=== PATIENT | male | born 2000 | race Caucasian/White ===

== ENCOUNTER 2024-05-16 11:28 | Outpatient (AMB) | payer OTHER, SELFPAY ==
--- NOTE | 2024-05-16 11:29 | A.OFFPC_ITS ---
Vital Signs 05/16/24 11:35 Height 5 ft 9 in Weight 190 lb 2 oz BMI 28.1 BP 116/74 Blood Pressure Location Lt brachial Position Sitting Pulse 79 Pulse Source Pulse Oximeter Pulse Oximetry (%) 98 Oxygen Delivery Method Room Air Intake Visit Reasons: CERTIFIED NUCLEAR MEDICINE TECHNOLOGIST/Armand lucas Allergies No Known Allergies Allergy (Verified 05/16/24 11:34) Medication List - Last Reconciled 05/16/24 by Tani Acuna MD methylphenidate HCl (Ritalin) 20 mg PO DAILY Tobacco use date assessed: 05/16/24 Dental Screening Dental Screen Date: 05/16/24 Did you have a dental visit in the last 12 months?: Yes Did you have a dental problem in the last 6 months where you did not have access to dental care?: No Was dental information given to patient?: Patient has dentist HPI CERTIFIED NUCLEAR MEDICINE TECHNOLOGIST/Armand lucas HPI Details New patient visit The patient is presenting for a routine physical examination after not seeing a doctor for over a year. - The patient is a 23-year-old male on a utism spectrum - ADHD history, previously managed with Ritalin prescribed by a tube blower, needs new psychiatric provider for continued prescription; running low on current supply. - Bilateral hand numbness, particularly upon waking, potential carpal tunnel syndrome suggested, with recommendation for wrist splint during sleep alleviating symptoms. Health Maintenance - Flu vaccine recommended and agreed upo n, with plans to administer during the visit. - Evaluation of immunization status for chickenpox and MMR; records to be reviewed. - Discussion to check titers if necessar y for ensuring immunity against chickenpox. - Yeast rash (potential Tinea Versicolor ) noted, management with topical antifungals discussed but advised to monitor without immediate concern unless symptoms worsen. - Wellness labs to be drawn during the v isit; patient on a non-fasting state since the previous evening. Medications - Ritalin for Attention Deficit Hyperact ivity Disorder (ADHD), prescribed by tube blower, usage continued at patient?s current regimen pending new psychiatric assessment. Social History - Full-time college student, senior stat [employer], primarily studies; stresses associated with academia managed alongside ADHD. 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 - No current substance use discussed or reported. Problem List - Attention Deficit Hyperactivity Disord er (ADHD) - Autism Spectrum Disorder (ASD) - Tingling and numbness in bilateral liao ds (possible Carpal Tunnel Syndrome) Patient Instructions - Get lab work done today since last lamar l was the previous night. - Await Suni, the behavioral health coor dinator, for guidance about establishing care with a new psychiatric provider for medication refill. - Monitor hand numbness and consider wri st splints during sleep. - Receive flu shot today during the visi t. - Follow up to review immunization recor ds and possibly check immunity titers if records are insufficient. Review of Systems - Neurological: Reports tingling and num bness in both hands, primarily in the morning. - Skin: Reports occasional yeast rash, m ore prevalent in warmer seasons. - General: No fever no chills - Neurological: No headaches no dizzin ess - Ear nose throat: No sore throat no hearing difficulty no ear pain - Cardiovascular: No syncope, no chest pain, no palpitations - Gastrointestinal: No nausea vomiting or diarrhea - Endocrine: No polyuria polydipsia no heat intolerance - Genitourinary: No dysuria Physical Exam General: Cooperative, healthy appearing, comfortable, no acute distress Orientation: Patient oriented x3 Limitations: Autism spectrum Head: Normal to inspection Ears: Within normal limit visually Nose: Normal external nose present Face and sinus: Normal facial exam Eyes: Appearance normal, extraocular movement intact pupils reactive Neck: Normal visual inspection and supple Respiratory: Normal respiratory effort and able to speak in complete sentences. Clear to auscultation, no stridor Cardiovascular: S1 and S2 GI: Normal to inspection. Soft to palpation and nontender Skin: Turgor normal, no acute findings. Reports of yeast rash and little spotties, more so in the summer, identified as Tenia versicola. Neuro: Patient oriented x3, motor sensory intact, balance intact, tandem pass. Reports of hands going numb, both hands, especially in the morning. Extremities: Normal to inspection [facility] Social History Housing: House Patient Tobacco Use Status: Never used Tobacco e-Cigarette/Vaping Use: Never Used service: No Current occupational status: employed Cognitive needs: No Hearing needs: No Vision needs: Yes Questionnaire PHQ-9 Over the last 2 weeks, how often have you been bothered by any of the following problems? 1. Little interest or pleasure in doing things: not at all 2. Feeling down, depressed, or hopeless: not at all 3. Trouble falling or staying asleep, or sleeping too much: not at all 4. Feeling tired or having little energy: not at all 5. Poor appetite or overeating: not at all 6. Feeling bad about yourself - or that you are a failure or have let yourself or your family down: not at all 7. Trouble concentrating on things, such as reading the newspaper or watching television: not at all 8. Moving or speaking so slowly that other people could have noticed. Or the opposite - being so fidgety or restless that you have been moving around a lot more than usual: not at all 9. Thoughts that you would be better off or of hurting yourself in some way: not at all Total score: 0 Depression Screening Interpretation: Negative Depression Screening Done: Yes 45427 - PHQ-9 Billing: Yes Source: Developed by Drs. Adal Yeh, Martha Lai, Jacob Persaud and colleagues, with an educational donna from [employer]. Thrive Questionnaire Date Thrive assessed: 05/16/24 I am a: Patient What is your living situation today?: I have a steady place to live Within the past 12 months, did the food you bought not last and you didn't have the money to get more?: Never true Within the past 12 months, did you worry whether your food would run out before you got money to buy more?: Never true Do you have trouble paying for medicines?: No Do you have trouble getting transportation to medical appointments?: No Do you have trouble paying your heating and electricity bill?: No Do you have trouble taking care of your child, family member or friend?: No Do you have trouble with day-to-day activities such as bathing, preparing meals, shopping, managing finances, etc.?: No Are you currently unemployed and looking for a job?: No Are you interested in more education?: Yes Please select the resources that you would like help with: None Currently or been in a relationship where the following occur: No concerns reported THRIVE Score: 0 AUDIT C Alcohol Use Questionnaire (AUDIT-C) 1. How often do you have a drink containing alcohol?: Never 3. How often do you have six or more drinks on one occasion?: Never Total Score: 0 Score Reviewed/Action Taken: Yes MARIEL-7 AMB Questionnaire MARIEL-7 Date MARIEL - 7 assessed: 05/16/24 Feeling nervous, anxious, or on edge: 0 = Not at all Not being able to stop or control worryin = Not at all Worrying too much about different things: 0 = Not at all Trouble relaxin = Not at all Being so restless that it is hard to sit still: 0 = Not at all Becoming easily annoyed or irritable: 0 = Not at all Feeling afraid as if something awful might happen: 0 = Not at all Total MARIEL-7 score (0-4 normal; 5-9 mild; 10-14 moderate; 15-21 severe): 0 Source: Developed by Drs. Adal Yeh, Martha Lai, Jacob Persaud and colleagues, with an educational donna from [employer]. MARIEL-7 Assessment Billing MARIEL-7 Assessment Tool: MARIEL-7 Assessment 48040 Physical exam (Primary Care) Vital Signs: Last Vital Signs Pulse 79 05/16/24 11:35 BP 116/74 05/16/24 11:35 Pulse Ox 98 05/16/24 11:35 Oxygen Delivery Method Room Air 05/16/24 11:35 BMI result Body Mass Index 28.1 Tobacco/Smoking Status: Tobacco use Status Tobacco use date assessed 05/16/24 05/16/24 11:38 Patient Tobacco Use Status Never used Tobacco 05/16/24 11:38 e-Cigarette/Vaping Use Never Used 05/16/24 11:38 PHQ-9: PHQ-9 Score PHQ-9: Total score 0 05/16/24 12:11 Depression Screening Interpretation: Negative Thrive Assessment: Date of Thrive Assessment Date Thrive assessed 05/16/24 05/16/24 11:39 Currently or been in a relationship where the following occur: No concerns reported Office Procedures Flu Questionnaire Does the patient have a severe egg allergy?: No Does the patient have severe life threatening allergies?: No Does the patient have a fever or illness today?: No Has the patient ever had Guillain-Schleswig Syndrome?: No Has the patient ever had any past reaction to a flu shot?: No Immunizations Fluarix Triv [id number] (PF) 45 mcg (15 mcg x 3)/0.5 mL IM syringe Performing Provider: Tani Acuna MD [place] [facility] Administered by: Mukesh Ramírez CMA on 05/16/24 12:11 Dose Route Admin Location Dispensed Lot Number Expiration Date NDC Rip Saw Operator 0.5 mL IM Left Deltoid 0.5 mL [id number] 10/20/24 [id number] VIS Given Date VIS Provided VIS Publication Date 05/16/24 Single Vaccine 20 Eligibility Eligibility Date Funding Source Not [facility] Eligible 05/16/24 Private Coding Level of Care Code New Pt Level 4 (09317) New Pt Prev Care 18-39yr(59626 Diagnoses Encounter for general adult medical examination with abnormal findings Z00.01 Attention deficit hyperactivity disorder (ADHD), predominantly inattentive type F90.0 Attention deficit type: attention deficit hyperactivity disorder (ADHD) Attention deficit-hyperactivity disorder type: predominantly inattentive Autism F84.0 Carpal tunnel syndrome, bilateral G56.03 Additional Codes MARIEL-7 Assessment Billing - MARIEL-7 Assessment Tool: MARIEL-7 Assessment 46036 ([id number]) PHQ-9 - 51338 - PHQ-9 Billing: Yes ([id number]) Assessment & Plan Assessment & Plan (1) Encounter for general adult medical examination with abnormal findings: Code(s): Z00.01 - Encounter for general adult medical examination with abnormal findings Category: Medical (2) ADD (attention deficit disorder): Code(s): F98.8 - Other specified behavioral and emotional disorders with onset usually occurring in childhood and adolescence Category: Medical Qualifiers: Attention deficit type: attention deficit hyperactivity disorder (ADHD) Attention deficit-hyperactivity disorder type: predominantly inattentive Qualified Code(s): F90.0 - Attention-deficit hyperactivity disorder, predominantly inattentive type (3) Autism: Code(s): F84.0 - Autistic disorder Category: Medical (4) Carpal tunnel syndrome, bilateral: Code(s): G56.03 - Carpal tunnel syndrome, bilateral upper limbs Category: Medical Plan New patient visit The patient is presenting for a routine physical examination after not seeing a doctor for over a year. - The patient is a 23-year-old male on autism spectrum - ADHD history, previously managed with Ritalin prescribed by a tube blower, needs new psychiatric provider for continued prescription; running low on current supply. - Bilateral hand numbness, particularly upon waking, potential carpal tunnel syndrome suggested, with recommendation for wrist splint during sleep alleviat ing symptoms. Health Maintenance - Flu vaccine recommended and agreed upon, with plans to administer during the visit. - Evaluation of immunization status for chickenpox and MMR; records to be revie wed. - Discussion to check titers if necessary for ensuring immunity against chickenpox. - Yeast rash (potential Tinea Versicolor) noted, management with topical antifungals discussed but advised to monitor without immediate concern unless symptoms worsen. - Wellness labs to be drawn during the visit; patient on a non-fasting state since the previous evening. Medications - Ritalin for Attention Deficit Hyperactivity Disorder (ADHD), prescribed by tube blower, usage continued at patient?s current regimen pending new psychiatric assessment. Social History - Full-time college student, senior status, primarily studies; stresses associated with academia managed alongside ADHD. 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 - No current substance use discussed or reported. Problem List - Attention Deficit Hyperactivity Disorder (ADHD) - Autism Spectrum Disorder (ASD) - Tingling and numbness in bilateral hands (possible Carpal Tunnel Syndrome) Patient Instructions - Get lab work done today since last meal was the previous night. - Await Suni, the behavioral health coordinator, for guidance about establishing care with a new psychiatric provider for medication refill. - Monitor hand numbness and consider wrist splints during sleep. - Receive flu shot today during the visit. - Follow up to review immunization records and possibly check immunity titers if records are insufficient. Orders: Orders Complete Blood Count Auto Diff Today E66.09 - Other obesity due to excess calories, F84.0 - Autistic disorder, F98.8 - Other specified behavioral and emotional disorders with onset usually occurring in childhood and adolescence, G56.03 - Carpal tunnel syndrome, bilateral upper limbs, Z00.01 - Encounter for general adult medical examination with abnormal findings TSH reflex Free T4 Today E66.09 - Other obesity due to excess calories, F84.0 - Autistic disorder, F98.8 - Other specified behavioral and emotional disorders with onset usually occurring in childhood and adolescence, G56.03 - Carpal tunnel syndrome, bilateral upper limbs, Z00.01 - Encounter for general adult medical examination with abnormal findings Influenza [id number] Immunization Today Z23 - Encounter for immunization Comprehensive [place]. Panel Fast Today E66.09 - Other obesity due to excess calories, F84.0 - Autistic disorder, F98.8 - Other specified behavioral and emotional disorders with onset usually occurring in childhood and adolescence, G56.03 - Carpal tunnel syndrome, bilateral upper limbs, Z00.01 - Encounter for general adult medical examination with abnormal findings Lipid Panel Today E66.09 - Other obesity due to excess calories, F84.0 - Autistic disorder, F98.8 - Other specified behavioral and emotional disorders with onset usually occurring in childhood and adolescence, G56.03 - Carpal tunnel syndrome, bilateral upper limbs, Z00.01 - Encounter for general adult medical examination with abnormal findings Vitamin D 25-OH (D2 and D3) Today E66.09 - Other obesity due to excess calories, F84.0 - Autistic disorder, F98.8 - Other specified behavioral and emotional disorders with onset usually occurring in childhood and adolescence, G56.03 - Carpal tunnel syndrome, bilateral upper limbs, Z00.01 - Encounter for general adult medical examination with abnormal findings
[2024-05-16 11:35] VITALS: BP 116/74; PULSE 79; O2SAT 98; BMI 28.1
--- OUTSIDE RECORDS SUMMARY | 2024-05-16 13:44 | XMS_ITS | Clinical Summary ---
Author Organization [facility] Address [address] [place] [id number] Phone Care Team Providers Care Depalletizer Operator Name Role Phone Unavailable Primary Care Provider Unavailabl e Allergies No known active allergies Medications Melatonin 5 MG tablet dispersibleIndica tions:Attention deficit hyperactivity disorder, predominantly inattentive type Take 1 tablet by mouth nightly. 90 tablet 3 9 Active Additional Information Patient not taking.Reported on 03/10/2022 fluticasone (VERAMYST) 27.5 MCG/SPRAY nasal sprayIndications: Allergic state, subsequent encounter 1-2 spray(s) by intranasal route every day in each nostril. 10 g 11 9 Active Additional Information Patient not taking.Reported on 03/26/2023 methylphenidate (Ritalin) 10 MG tabletIndications :Attention deficit hyperactivity disorder, predominantly inattentive type Take 1 tablet (10 mg total) by mouth every afternoon. 30 tablet 4 Active methylphenidate LA (Ritalin LA) 20 MG 24 hr capsuleIndication s:Attention deficit hyperactivity disorder, predominantly inattentive type Take 1 capsule (20 mg total) by mouth every morning. 30 capsule 4 Active Active Problems Problem Noted Date Diagnosed Date Autism spectrum disorder 07/05/2016 Overview (03/17/2019): dx by [facility]2 in MAR 2016 [facility] piedad. had IEP. Now has 504 plan 2018-. Doing GREAT in school I excuse him from gym class due to difficulties with tying shoes and getting changed amongst peers. Assessment & Plan (03/26/2023 10:47 AM EST): High functioning college student @ [employer] Assessment & Plan (04/08/2020 1:54 PM EST): Got a college scholarship! 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 Overview (11/17/2022): Ritalin LA: inc to 20mg OCT21 Methylphenidate 10mg short- prn afternoon dose if working evening takes prn melatonin; once a year med check Going to [employer] Assessment & Plan (03/26/2023 10:47 AM EST): Stable on methylphenidate LA 20mg w/ prn short acting methylphenidate 10mg in afternoon In [facility] @ [employer] [facility] [facility] Today is last PE w/ me- gave him adult PCP list so he can work on transferring to adult care in 2023 I will RF ADD meds for the next 12mo Assessment & Plan (11/17/2022 9:42 AM EDT): Spoke to mom- occasionally he works an evening shift and his morning dose methylphenidate MA 20mg does not last into the evening. Wants to try a prn short acting dose 10mg methylphenidate. This is reasonable. Assessment & Plan (10/20/2022 10:18 AM EDT): Stable on methylphenidate LA 20mg PE due in NOV- pt prefers we call mom to set up PE appt Assessment & Plan (03/10/2022 5:15 PM EST): College student/high functioning ASD Annual med check OK as he is very stable on methylphenidate LA 20mg Assessment & Plan (04/01/2021 3:19 PM EST): Doing great on inc dose methylphenidate LA to 20mg hmk time going much better Will RF med until his next PE due in Advised to get COVID vacc booster! 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 Inc methylphenidate LA to 20mg Med check VV in 6w Assessment & Plan (04/08/2020 1:55 PM EST): 4.1 GPA Has been taking methylphenidate LA but not consistently He is doing well in school- less distractions w/ remote learning Will go to [facility] or [employer] [facility]- [facility] [employer] scholarship funding Plan for Med check in late when he is a few weeks into college Assessment & Plan (07/30/2019 11:35 AM EDT): Not feeling like he needs the methylphenidate LA while he is home doing schoolwork secondary to COVID19 pandemic- no distractions like he has @ school But there are different distractions @ home so may want to re-think taking his med Also encouraged to get onto some kind of schedule for schoolwork and get into a better sleep schedule- discussed ways to do this Plan on med check in FEB when here for PE Assessment & Plan (03/18/2019 4:03 PM EST): He is doing great; honor roll; wants to study video game design in college On methylphenidate LA 10mg for a long time Med check in Assessment & Plan (07/15/2018 11:21 AM EDT): He is doing so great in school- cont ritalin LA 10mg. V-bilts are great today. Going to hold off on med for summertime. Med check in JAN with full PE. Assessment & Plan (02/19/2018 9:54 AM EDT): Doing well this year again- has IEP; med check in 4mo. On ritalin LA low dose 10mg Assessment & Plan (08/01/2017 3:40 PM EDT): He is doing so well that I will see him q6mo now; cont. Ritalin LA 10mg; I can do 3 mo RFs at a time until OCT Come back in OCT for full PE Assessment & Plan (01/24/2017 3:45 PM EDT): He is really doing great in school this year! Learning disability 05/01/2012 Overview (02/19/2018): IEP in place Allergic rhinitis 08/30/2011 Overview (02/18/2021): Saw government documents librarian who rec veramyst; did not do well with allergy shots Seasonal allergies Assessment & Plan (02/18/2021 5:19 PM EDT): Uses nasal spray veramyst prn Per mom he is difficult to get to comply Will see if he needs RF in - he is 20yo now and can do better w/ remembering on his own! Assessment & Plan (01/24/2017 3:43 PM EDT): veramyst effective Amblyopia 09/13/2007 Overview (02/18/2021): Better w/ glasses! Assessment & Plan (02/18/2018 10:46 AM EDT): Mom will take him for eye appt. 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 Overview (03/18/2019): Mild; 8-10 degreees R thoracic; stable and he is nearly done growing Anxiety 03/04/2015 04/07/2020 Overview (02/19/2018): Much better since he started [facility] Constipation 12/01/2013 02/18/2021 Overview (02/19/2018): Prn miralax effective Assessment & Plan (01/24/2017 3:44 PM EDT): miralax effective when he agrees to take it Immunizations Name Administration Dates Next Due DTaP 5 10/04/2006, 4,04/08/2003,01/28,2002 H1N1 07/06/2009,03/23/2009 HPV, Quadrivalent 06/16/2014,02/11/2014,12/02/19 14 Hep A, ped/adol 06/16/2014,12/01/2013 Hep B, ped/adol 07/02/2003,04/08/2003,2002 Hib (HbOC) 01/27/2004 Hib (PRP-T) 04/08/2003,01/28/2003,2002 IPV 10/04/2006, 4,01/28/2003,11/26 Influenza, injectable, quadrivalent 06/16/2014 Influenza, injectable, quadr ivalent, preservative free 03/26/2023,03/10/2022,02/18/2021,04/07,03/17/2019,02/18/2018,01/24/2017 ,01/17/2016 Influenza, injectable, trivalent 03/23/2009,03/23 Influenza, intranasal, quadrivalent 03/04/2015,1 05/03/2012 Influenza, intranasal, trivalent 04/19/2011 MMR 10/01/2003 MMRV 10/04/2006 Meningococcal B Trumenba 09/19/2022,03/10/2022 Meningococcal Conj (Menactra) MCV4P 03/17/2019,0 12/01/2013 Pneumococcal Conjugate 01/27/2004,2002,01/28/2003,11/26 Tdap 12/01/2013 Varicella 10/01/2003 Family History Medical History Relation Name Comments Asthma Father Franklyn Arambula Depression Maternal Grandfather Heart disease Maternal Grandfather Hypertension Maternal Grandmother Ulcerative colitis Maternal Grandmother Anxiety disorder Mother July Procon Asthma Mother July Procon Breast cancer Mother July Procon Hyperlipidemia Mother July Procon Migraines Mother July Procon Hyperlipidemia Mother's Sister No Known Problems Paternal Grandfather Anxiety disorder Paternal Grandmother Breast cancer Paternal Grandmother Diabetes Paternal Grandmother Hypertension Paternal Grandmother Lupus Paternal Grandmother Transient ischemic attack Paternal Grandmother Ulcerative colitis Sister 1 Danay Procon Anxiety disorder Sister 2 Kat Procon No Known Problems Sister 3 Heaven Procon Relation Name Status Comments Father Franklyn Procon Alive Father: Asthma Maternal Grandfather Alive Maternal Grandmother Alive Materna l grandmother: Hypertension, Diabetes mellitus, colitis, Lupus erythematosus Mother July Procon Alive Mother: Asthma, hyperlipidemia Mother's Sister Other Family history of Sudden /AK under age 55, Family history of CVA (Stroke), No family history of Dental caries, Family history of Thrombophilia Paternal Grandfather Alive Paternal Grandmother Alive Sister 1 Danay Procon Alive Sister 2 Kat Procon Alive Sister 3 Heaven Procon Alive Social History Tobacco Use Types Packs/Day Years Used Date Smoking Tobacco: Never Smokeless Tobacco: Never Comments:Never smoker Alcohol Use Standard Drinks/Week Comments No 0 (1 standard drink = 0.6 oz pur e alcohol) Hunger/Food Answer Date Recorded In the last 12 months, did y ou or your family ever eat less than you felt you should because there wasn't enough money for food? No 03/26/2023 Stable Housing Answer Date Recorded Are you worried that in the next 2 months you may not have stable housing? No 03/26/2023 Transportation Concerns Answer Date Rec orded In the last 12 months, have you or your family ever had to go without healthcare because you didn't have a way to get there? No 03/26/2023 Hazards in Home Answer Date Recorded Think about the place you li ve. Do you have problems with any of the following? Pests (mice or roaches), mold, no/not working smoke detectors, water leaks, no window guards. No 2022 Financing Utilities Answer Date Recorde d In the last 12 months, has t he electric, gas, oil, or water company threatened to shut off your services in your home? No 03/26/2023 Safety at Home Answer Date Recorded Are you or your family worried about feeling saf e in your home? No 03/26/2023 Outside Support Answer Date Recorded Do you feel that you need mo re support from other people or programs to help you care for yourself or your family? No 03/26/2023 Understanding Health Concerns Answer Da te Recorded Do you need help understandi ng your or your child's healthcare needs (diagnosis, medications, plan, etc.)? No 03/26/2023 Financing Health Concerns Answer Date R ecorded In the last 12 months, was t here a time when your child needed to see a doctor or get medications or supplies but could not because of cost? No 03/26/2023 Missing School or Work Answer Date Mann rded Did you or your child miss s chool or work because of a health problem that could have been avoided? No 03/26/2023 Sex and Gender Information Value Date Recorded Sex Assigned at Not on file Legal Sex Male 5:21 PM EDT Gender Identity Not on file Sexual Orientation Straight 03/26/2023 10 :44 AM EST Last Filed Vital Signs Vital Sign Reading Time Taken Comments Blood Pressure 111/70 03/26/2023 8:12 AM EST Pulse 70 03/26/2023 8:12 AM EST Temperature 35.6 ??C (96 ??F) 03/26/2023 8:12 AM EST Respiratory Rate - - Oxygen Saturation - - Inhaled Oxygen Concentration - - Weight 71.9 kg (158 lb 9.6 oz) 03/26/2023 8:12 A M EST Height 175.3 cm (5' 9 ) 03/26/2023 8:12 AM EST Body Mass Index 23.42 03/26/2023 8:12 AM EST Plan of Treatment Health Maintenance Due Date Last Done Comments Influenza Vaccines (#1) 2023 03/26/20, 03/10/2022, 02/18/2021, Additional history exists DTaP,Tdap,and Td Vaccines (7 - Td or Tdap) 12/02/2023 12/01/2013, 10/04/2006, 03/31/2004, Additional history exists COVID-19 Vaccine (3 - 2023-2 5 season) 2023 09/13/2020, 08/23/2020 Hepatitis B Vaccines Completed 07/02/2003, 04/08/2003, 2002 HIB Vaccines Completed 01/27/2004, 03/23, 01/28/2003, Additional history exists Pneumococcal Vaccine Completed 01/27/2004, 04/08/2003, 01/28/2003, Additional history exists IPV Vaccines Completed 10/04/2006, 06/21, 01/28/2003, Additional history exists MMR Vaccines Completed 10/04/2006, 10/01/2003 Varicella Vaccines Completed 10/04/2006, 10/01/2003 HPV Vaccines Completed 06/16/2014, 01/22, 12/01/2013 Hepatitis A Vaccines Completed 06/16/2014, 12/02/19 14 Meningococcal Vaccine Completed 03/17/2019, 014 Men B Vaccine Completed 09/19/2022, 03/10/2022
--- OUTSIDE RECORDS SUMMARY | 2024-05-16 13:44 | XMS_ITS | Encounter Summary ---
Author Organization [facility] Address [address] [place] [address] Phone Care Team Providers Care Groover Operator Name Role Phone Janel Traore DO Primary Care Provider Reason for Visit * Reason Comments Med Refill Encounter Details Date Type Department Care Team ([facility] st Contact Info) Description 04/30/2019 Refill [facility] [place] [address] [place], [place] [id number] Janel Traore DO [address] [place] [address] Tinea versicolor Social History Tobacco Use Types Packs/Day Years Used Date Smoking Tobacco: Never Smokeless Tobacco: Never Comments:Never smoker Alcohol Use Standard Drinks/Week Comments No 0 (1 standard drink = 0.6 oz pur e alcohol) Hunger/Food Answer Date Recorded No 05/11/2018 Stable Housing Answer Date Recorded No 04/26/2019 Transportation Concerns Answer Date Rec orded No 05/11/2018 Hazards in Home Answer Date Recorded No 05/11/2018 Financing Utilities Answer Date Recorde d No 05/11/2018 Safety at Home Answer Date Recorded No 05/11/2018 Outside Support Answer Date Recorded No 05/11/2018 Understanding Health Concerns Answer Da te Recorded No 05/11/2018 Financing Health Concerns Answer Date R ecorded No 05/11/2018 Missing School or Work Answer Date Mann rded No 05/11/2018 Sex and Gender Information Value Date Recorded Sex Assigned at Not on file Legal Sex Male 5:21 PM EDT Gender Identity Not on file Sexual Orientation Straight 03/26/2023 10 :44 AM EST documented as of this encounter Miscellaneous Notes * Telephone Encounter - Vangie Strickland LPN - 05/01/2019 10:54 AM EST Pharmacy requesting refill of fluconazole susp. Per office note in Nov, was to take suspension oncea week for 3-4 weeks. Call out to mother for more info. documented in this encounter Plan of Treatment Not on file documented as of this encounter Visit Diagnoses Diagnosis Tinea versicolor Pityriasis versicolor documented in this encounter Care Teams Groover Operator Relationship Specialty Start Date End Date Janel Traore DO [address] [place] [address] M[place] Dean [id number] PCP - General 12/01/16 10/18/23 documented as of this encounter
--- OUTSIDE RECORDS SUMMARY | 2024-05-16 13:44 | XMS_ITS | Encounter Summary ---
Author Organization [facility] Address [address] [place] [address] Phone Care Team Providers Care Business Continuity Coordinator Name Role Phone Janel Traore DO Primary Care Provider [phone] Encounter Details Date Type Department Care Team (Late st Contact Info) Description 05/24/2016 Documentation [facility] [place] [facility] [address] [place] [address] Family Medicine, Physician [address] [place], [place] [id number] Social History Tobacco Use Types Packs/Day Years Used Date Smoking Tobacco: Never Comments:Never smoker Sex and Gender Information Value Date Recorded Sex Assigned at Not on file Legal Sex Male 5:21 PM EDT Gender Identity Not on file Sexual Orientation Straight 03/26/2023 10 :44 AM EST documented as of this encounter Plan of Treatment Not on file documented as of this encounter Visit Diagnoses Not on filedocumented in this encounter Care Teams Business Continuity Coordinator Relationship Specialty Start Date End Date Janel Traore DO [address] [place] [address] [place] [address] PCP - General 12/01/16 10/18/23 documented as of this encounter
--- OUTSIDE RECORDS SUMMARY | 2024-05-16 13:44 | XMS_ITS | Encounter Summary ---
Author Organization [facility] Address [address] [place] [address] Phone Care Team Providers Care Management Professionals Name Role Phone Janel Traore DO Primary Care Provider [phone] Encounter Details Date Type Department Care Team (Late st Contact Info) Description 05/24/2016 Documentation [facility] Family Medicine [address] [place] [address] Family Medicine, Physician [address] [place], [place] [phone] Social History Tobacco Use Types Packs/Day Years [...] on filedocumented in this encounter Care Teams Management Professionals Relationship Specialty Start Date End Date Janel Traore DO [address] [place] [address] [place] [address] PCP - General 12/01/16 10/18/23 documented as of this encounter
--- OUTSIDE RECORDS SUMMARY | 2024-05-16 13:44 | XMS_ITS | Encounter Summary ---
Author Organization [facility] Address [address] [place] [address] Phone Care Team Providers Care Flight Paramedic Name Role Phone Janel Traore DO Primary Care Provider [phone] Encounter Details Date Type Department Care Team (Late st Contact Info) Description 01/26/2012 Documentation [facility] [place] Family Medicine [address] [place] [address] Family Medicine, Physician [address] [place], [place] [phone] Social History Tobacco Use Types Packs/Day Years Used Date Smoking Tobacco: Never Assessed Sex and Gender Information Value Date Recorded Sex Assigned at Not on file Legal Sex Male 5:21 PM EDT Gender Identity Not on file Sexual Orientation Straight 03/26/2023 10 :44 AM EST documented as of this encounter Plan of Treatment Not on file documented as of this encounter Visit Diagnoses Not on filedocumented in this encounter Care Teams Flight Paramedic Relationship Specialty Start Date End Date Janel Traore DO [address] [facility] [place] [address] PCP - General 12/01/16 10/18/23 documented as of this encounter
--- OUTSIDE RECORDS SUMMARY | 2024-05-16 13:44 | XMS_ITS | Encounter Summary ---
Author Organization [facility] Address [address] [place] [address] Phone Care Team Providers Care Unit Secretary Name Role Phone Janel Traore DO Primary Care Provider [phone] Encounter Details Date Type Department Care Team (Late st Contact Info) Description 09/18/[address] [facility] [place] Family Medicine [address] [place] [address] Family Medicine, Physician [address] [place], [place] [address] Social History Tobacco Use Types Packs/Day Years [...] on filedocumented in this encounter Care Teams Unit Secretary Relationship Specialty Start Date End Date Janel Traore DO [address] [place] [address] PCP - General 12/01/16 10/18/23 documented as of this encounter
--- OUTSIDE RECORDS SUMMARY | 2024-05-16 13:44 | XMS_ITS | Encounter Summary ---
Author Organization [facility] Address [address] [place] [address] Phone Care Team Providers Care Die Hardener Name Role Phone Janel Traore DO Primary Care Provider [phone] Encounter Details Date Type Department Care Team (Late st Contact Info) Description 12/07/2016 Conversion Encounter [facility] [address] [place] [address] Social History Tobacco Use Types Packs/Day Years [...] on filedocumented in this encounter Care Teams Die Hardener Relationship Specialty Start Date End Date Janel Traore DO [address] [place] [address] PCP - General 12/01/16 10/18/23 documented as of this encounter
== END 2024-05-16 12:12 | disposition home or self-care (01) ==
PROVIDERS: PCP Pediatrics; Visit Provider Internal Medicine
DX: Z00.00 Encounter for general adult medical examination without abnormal findings (principal); F90.0 Attention-deficit hyperactivity disorder, predominantly inattentive type; F84.0 Autistic disorder; G56.03 Carpal tunnel syndrome, bilateral upper limbs; Z23 Encounter for immunization

== ENCOUNTER 2024-05-16 11:28 | Outpatient (REF) | payer OTHER, SELFPAY ==
[2024-05-16 13:25] LABS: MANUAL DIFF FLAG NO
[2024-05-16 13:37] LABS: Basophils Percent Auto 0.9 % (0-2); Eosinophils Absolute Auto 0.4 X10*3/uL (0.0-0.4); Eosinophils Percent Auto 9.4 % (0-4); Hematocrit 43.8 % (42.0-52.0); Hemoglobin 15.4 g/dl (14.0-18.0); Imm Gran Abs Auto 0.01 X10*3/uL (0.00-0.03); Imm Gran Pct Auto 0.2 % (0.0-0.4); Lymphocytes Absolute Auto 1.5 X10*3/uL (1.2-4.9); Lymphocytes Percent Auto 32.4 % (20-40); Mean Corpuscular HGB Conc 35.2 g/dl (31.0-36.0); Mean Corpuscular Hemoglobin 32.7 pg (27.0-33.0); Mean Platelet Volume 10.1 fL (9.4-12.4); Monocytes Absolute Auto 0.5 X10*3/uL (0.1-1.2); Monocytes Percent Auto 11.1 % (2-11); Neutrophils Absolute Auto 2.2 x10*3/uL (2.0-8.3); Platelet Count 283 X10*3/uL (160-400); Red Blood Count 4.71 X10*6/uL (4.60-5.80); Red Cell Distribution Width 11.4 % (11.0-16.0); White Blood Count 4.7 X10*3/uL (4.8-10.8)
[2024-05-16 15:40] LABS: TSH reflex Free T4 0.55 uIU/mL (0.32-4.0)
[2024-05-16 16:01] LABS: Anion Gap 10 (12-20)
[2024-05-16 16:06] LABS: Alanine Aminotransferase 21 U/L (0-40); Albumin Level 4.4 g/dL (3.5-5.0); Alkaline Phosphatase 83 U/L (39-117); Aspartate Amino Transferase 20 U/L (5-37); Bilirubin Total 0.5 mg/dL (0.0-1.0); Blood Urea Nitrogen 12 mg/dL (9-16); Carbon Dioxide 28 mmol/L (22-29); Chloride 106 mmol/L (96-108); Cholesterol 127 mg/dL (<200); Estimated Glomerular Filt Rate > 60; Glucose Fasting 79 mg/dL (60-99); HDL Cholesterol 40 mg/dL (>40); LDL Cholesterol Calculated 78 mg/dL (<100); Sodium 140 mmol/L (135-145); Total Protein 7.4 g/dL (6.5-8.0); Triglycerides 48 mg/dL (<150)
[2024-05-24 01:28] LABS: Vitamin D 25-OH, D2 <4 ng/mL; Vitamin D 25-OH, D3 <4 ng/mL; Vitamin D 25-OH, Total <4 ng/mL (30-100)
== END 2024-05-16 11:29 | disposition home or self-care (01) ==
LOC: HO.HMGCLDS 11:28
PROVIDERS: PCP Internal Medicine; Visit Provider Internal Medicine
DX: Z00.01 Encounter for general adult medical examination with abnormal findings (principal); Z23 Encounter for immunization; F90.0 Attention-deficit hyperactivity disorder, predominantly inattentive type; F84.0 Autistic disorder; G56.03 Carpal tunnel syndrome, bilateral upper limbs; E66.09 Other obesity due to excess calories; Z68.28 Body mass index [BMI] 28.0-28.9, adult
CPT/HCPCS: 36415; 80053; 80061; 82306; 84443; 85025; 90471; 90656; 96127; 99385